=== PATIENT | male | born 1975 | race Caucasian/White ===

== ENCOUNTER → 2019-01-31 | Outpatient (CLI) | payer BC | LOC: MHCPAIN 12:15 | DX: M54.12 Radiculopathy, cervical region (principal); M47.812 Spondylosis without myelopathy or radiculopathy, cervical region | CPT/HCPCS: G0463 ==

== ENCOUNTER → 2019-02-05 | Outpatient (CLI) | payer BC | LOC: MHCPAIN 13:24 | DX: M48.02 Spinal stenosis, cervical region (principal); M50.20 Other cervical disc displacement, unspecified cervical region ==

== ENCOUNTER → 2019-03-07 | Outpatient (CLI) | payer BC | LOC: MHCPAIN 15:04 | DX: M54.12 Radiculopathy, cervical region (principal); M47.812 Spondylosis without myelopathy or radiculopathy, cervical region | CPT/HCPCS: G0463 ==

== ENCOUNTER → 2019-08-06 | Outpatient (CLI) | payer OTHER ==
[~2019-08-06] MED LIST: CEPHALEXIN500 M1 PO
[2019-08-06 09:45] VITALS: BP 118/72; PULSE 57; TEMP 98.4
== END ==
LOC: COL.ER 09:40
DX: Z48.02 Encounter for removal of sutures (principal)